=== PATIENT | male | born 1935 | race Caucasian/White ===

== ENCOUNTER 2017-05-16 12:10 | Emergency (ER) | payer OTHER, BC ==
[2017-05-16 12:22] VITALS: BP 172/83; PULSE 65; TEMP 98.3; BMI 36.3
--- NOTE | 2017-05-16 12:24 | PDOC ---
History of Present Illness - General Chief Complaint: Nasal Bleeding Stated Complaint: NOSE BLEED Time Seen by Provider: 05/16/17 12:18 History Source: Patient, Family Exam Limitations: No Limitations - History of Present Illness Initial Comments: 05/16/17 12:19 81 y/o male with nose bleed for 2 hours. Denies being on blood thinners except for a baby Aspirin. No fall or trauma. No headache. called nurse line awnd was told to put ice and pressure on nose. Arrives to ER with no active bleeding. No neck pain, weakness or headache. Feels fine now. Timing/Duration: 1-3 hours Severity: mild Past History - Past Medical History Allergies/Adverse Reactions: Allergies Allergy/AdvReac Type Severity Reaction Status Date / Time IVP DYE Allergy Uncoded 01/13/16 22:31 Home Medications: Ambulatory Orders Aspirin [ASA -] 81 mg PO DAILY 01/13/16 Cholecalciferol (Vitamin D3) [Vitamin D3] 2,000 unit PO DAILY 01/13/16 Diltiazem HCl [Diltiazem 24Hr ER] 180 mg PO DAILY 01/13/16 Finasteride 5 mg PO DAILY 01/13/16 Folic Acid 1 mg PO DAILY 01/13/16 Hydrochlorothiazide [Hctz -] 25 mg PO DAILY 01/13/16 Loperamide HCl [Imodium -] 2 mg PO DAILY 01/13/16 Losartan Potassium 100 mg PO DAILY 01/13/16 Cardiac Disorders: Yes HTN: Yes - Suicide/Smoking/Psychosocial Hx Smoking History: Former smoker Have you smoked in the past 12 months: No Hx Alcohol Use: Yes (OCCAS) Drug/Substance Use Hx: No Substance Use Type: None Review of Systems - Review of Systems Able to Perform ROS?: Yes Is the patient limited Salvadorean proficient: No Constitutional: No: Chills, Fever HEENTM: Yes: Nose Bleeding Respiratory: No: Cough, Shortness of Breath Cardiac (ROS): No: Chest Pain Musculoskeletal: No: Back Pain All Other Systems: Reviewed and Negative *Physical Exam - Physical Exam General Appearance: Yes: Nourished, Appropriately Dressed. No: Apparent Distress HEENT: positive: EOMI, MAHESH, Normal Voice, Symmetrical, Pharynx Normal. negative: Normal ENT Inspection (dried blood from left nostril no septal hematoma or active bleeding noted, no erythema or tubinate swelling), Pharyngeal Erythema, Sinus Tenderness Neck: positive: Trachea midline, Normal Thyroid, Supple. negative: Tender, Rigid, Carotid bruit Respiratory/Chest: positive: Lungs Clear, Normal Breath Sounds. negative: Chest Tender, Respiratory Distress Cardiovascular: positive: Regular Rhythm, Regular Rate, S1, S2. negative: Edema , JVD, Murmur Vascular Pulses: Femoral (R): 4+, Femoral (L): 4+, Carotid (R): 4+, Carotid (L) : 4+, Dorsalis-Pedis (R): 4+, Doralis-Pedis (L): 4+ Gastrointestinal/Abdominal: positive: Normal Bowel Sounds, Flat Lymphatic: negative: Adenopathy, Tenderness, Other Musculoskeletal: positive: Normal Inspection. 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 *DC/Admit/Observation/Transfer Diagnosis at time of Disposition: Epistaxis - Discharge Dispostion Disposition: HOME Condition at time of disposition: Good Admit: No - Referrals - Patient Instructions Printed Discharge Instructions: DI for Nosebleed Additional Instructions: Ice, Tylenol, rest Apply pressure to nose for 20 minutes if restarts If worsen return to ER - Post Discharge Activity
== END 2017-05-16 12:31 | disposition home or self-care (01) ==
LOC: FER 12:10
DX: R04.0 Epistaxis (principal); Z79.82 Long term (current) use of aspirin; Z87.891 Personal history of nicotine dependence; I10 Essential (primary) hypertension
CPT/HCPCS: 99281-25

== ENCOUNTER 2017-06-01 09:33 | Emergency (ER) | payer OTHER, BC ==
[2017-06-01 09:51] VITALS: TEMP 98.9; BMI 37.1
--- NOTE | 2017-06-01 10:25 | PDOC ---
History of Present Illness - General Chief Complaint: Shortness of Breath Stated Complaint: DIFFICULTY BREATHING Time Seen by Provider: 06/01/17 09:40 - History of Present Illness Initial Comments: 06/01/17 11:03 78-year-old male history of hypertension, previous smoker, dementia, BPH presents emergency Department with transient shortness of breath this morning upon waking up at 730am. Patient is poor historian, and most of history is from the patient's . She reports she was on her way to work this morning when he complained of shortness of breath that lasted for about 1 minute. She reports that at the time he looks comfortable and she advised him to sit up from a lying position and the shortness of breath resolved. At this time, the patient is asymptomatic and denies shortness of breath. He's been in his usual state of health. His reports that he had a similar episode last summer and was evaluated at [facility] emergency department with a negative workup. His also reports he was admitted one month ago at [facility] for renal failure at which point his hydrochlorothiazide medication was stopped. She reports he has lower extremity edema chronically and there is no change in his edema today. Patient denies chest pain, abdominal pain, nausea, dizziness, vomiting, rashes, focal weakness or numbness. PMD: Dr. Elpidio Wong Past History - Past Medical History Allergies/Adverse Reactions: Allergies Allergy/AdvReac Type Severity Reaction Status Date / Time cefdinir AdvReac Mild Verified 06/01/17 09:34 IVP DYE Allergy Uncoded 06/01/17 09:34 Home Medications: Ambulatory Orders Aspirin [ASA -] 81 mg PO DAILY 01/13/16 Diltiazem HCl [Diltiazem 24Hr ER] 180 mg PO DAILY 01/13/16 Finasteride 5 mg PO DAILY 01/13/16 Folic Acid 1 mg PO DAILY 01/13/16 Losartan Potassium 100 mg PO DAILY 01/13/16 Quetiapine Fumarate [Seroquel -] 25 mg PO HS 05/16/17 Bifidobacterium Infantis [Align] 10.5 mg PO DAILY 06/01/17 Cyanocobalamin [Vitamin B12 -] 500 mg PO DAILY 06/01/17 Cardiac Disorders: Yes COPD: No Dementia: Yes HTN: Yes Other medical history: DEMENTIA, PROSTATE - Suicide/Smoking/Psychosocial Hx Smoking History: Former smoker Have you smoked in the past 12 months: No If you are a former smoker, when did you quit?: 1994 Information on smoking cessation initiated: No Hx Alcohol Use: No Drug/Substance Use Hx: No Substance Use Type: None Review of Systems - Review of Systems Comments:: 06/01/17 11:06 GENERAL/CONSTITUTIONAL: No fever or chills. No weakness. HEAD, EYES, EARS, NOSE AND THROAT: No change in vision. No ear pain or discharge. No sore throat. GASTROINTESTINAL: No nausea, vomiting, diarrhea or constipation. GENITOURINARY: No dysuria, frequency, or change in urination. CARDIOVASCULAR: No chest pain +shortness of breath. RESPIRATORY: No cough, wheezing, or hemoptysis. MUSCULOSKELETAL: No joint or muscle swelling or pain. No neck or back pain. SKIN: No rash NEUROLOGIC: No headache, vertigo, loss of consciousness, or change in strength/ sensation. ENDOCRINE: No increased thirst. No abnormal weight change. HEMATOLOGIC/LYMPHATIC: No anemia, easy bleeding, or history of blood clots. ALLERGIC/IMMUNOLOGIC: No hives or skin allergy. *Physical Exam - Vital Signs Last Vital Signs Temp Pulse Resp BP Pulse Ox 98.9 F 67 20 159/73 95 06/01/17 09:33 06/01/17 09:33 06/01/17 09:33 06/01/17 09:33 06/01/17 09:33 - Physical Exam Comments: 06/01/17 11:07 GENERAL: Awake, alert, oriented to name only, in no acute distress HEAD: No signs of trauma EYES: PERRLA, EOMI, sclera anicteric, conjunctiva clear ENT: Oropharynx clear without exudates. Moist mucosa NECK: Normal ROM, supple, no lymphadenopathy, JVD, or masses LUNGS: Breath sounds equal, clear to auscultation bilaterally. No wheezes, and no crackles HEART: Regular rate and rhythm, normal S1 and S2, no murmurs, rubs or gallops ABDOMEN: Obese, soft, nontender, normoactive bowel sounds. No guarding, no rebound. No masses EXTREMITIES: Normal range of motion. No clubbing or cyanosis. No cords, erythema, or tenderness. 1+ pitting edema, symmetric, to mid calves NEUROLOGICAL: Normal speech, cranial nerves grossly intact, normal strength and sensation throughout. Normal gait. SKIN: Warm, Dry, normal turgor, no rashes or lesions noted. Heart Score/ECG Review #1 06/01/17 10:26 Twelve-lead EKG was performed and reviewed by me. Sinus bradycardia, rate 57. Normal axis. No ST elevations or T-wave inversions. ED Treatment Course - LABORATORY CBC & Chemistry Diagram: 06/01/17 10:05 06/01/17 10:05 - RADIOLOGY Radiology Studies Ordered: Category Date Time Status CHEST X-RAY PORTABLE* [RAD] Stat Radiology 06/01/17 09:36 Taken Medical Decision Making - Medical Decision Making 06/01/17 11:09 81-year-old male with a history of dementia, hypertension, smoking, BPH presents with transient 1 minute episode of shortness of breath home this morning. Vitals here are unremarkable. Exam is unremarkable other than 1+ lower extremity edema which the patient's states is unchanged. Patient asymptomatic in the ED which is reassuring but given recent admission for renal failure and some risk factors, will obtain labs and x-ray and reassess. 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 Pt continues to be HDS, continues to deny SOB or any sxs in the ED. Case discussed with the patient 's primary physician Dr. Wong. Previous creatinine was elevated to 3.1 and 2.5 and thus today creatinine is improved since then. Previous hemoglobins range between 10.9 and 11 and thus hemoglobin of 10.4 today is not far off the baseline. Discussed the remainder of labs and normal x-ray and that the patient remains asymptomatic in the emergency department. Plan is to repeat troponin and if negative will discharge patient to follow-up with Dr. Wong this week. Dr. Wong asked me to have his call the office and speak with Tonya for the appointment. 06/01/17 14:35 Second troponin is negative. Patient continues to be asymptomatic in the emergency department with stable vitals. Patient feels well and requests discharge home. I discussed the physical exam findings, ancillary test results and final diagnoses with the patient. I answered all of the patient's questions. The patient was satisfied with the care received and felt comfortable with the discharge plan and treatment plan. The patient will call their primary care physician within 24 hours to arrange follow-up and will return to the Emergency Department with any new, persistent or worsening symptoms. *DC/Admit/Observation/Transfer Diagnosis at time of Disposition: Shortness of breath - Discharge Dispostion Disposition: HOME Condition at time of disposition: Stable Admit: No - Referrals - Patient Instructions Printed Discharge Instructions: DI for Shortness of Breath Additional Instructions: As discussed, follow-up with Dr. Wong within 1-2 days. He is expecting you. Call his office and speak to Tonya to make the appointment. Take all of your medications as prescribed. Return to the emergency department if you have any new, worsening, or concerning symptoms. - Post Discharge Activity - Attestations Physician Attestion: 06/01/17 14:40 I, Dr. Norah Dawkins MD, attest that this document has been prepared under my direction and personally reviewed by me in its entirety. I further attest, that it accurately reflects all work, treatment, procedures and medical decision -making performed by me.
[2017-06-01 10:30] LABS: BASO % 0.8 % (0-2.0); HEMATOCRIT 31.1 % (35.4-49); HEMOGLOBIN 10.4 GM/dl (11.7-16.9); LYMPH % 9.7 % (8-40); MCH 32.5 pg (25.7-33.7); MCHC 33.6 g/dl (32.0-35.9); MEAN CELL VOLUME 96.9 fl (80-96); MEAN PLT VOLUME 7.3 fl (7.5-11.1); MONO % 7.1 % (3.8-10.2); NEUT % 78.4 % (42.8-82.8); PLATELET COUNT 234 K/MM3 (134-434); RBC 3.21 M/mm3 (4.00-5.60); RDW 13.1 % (11.9-15.9); WHITE BLOOD COUNT 6.4 K/mm3 (4.0-10.8)
[2017-06-01 10:32] LABS: ALBUMIN 3.4 g/dl (3.5-5.0); ALK PHOS 81 U/L (32-92); ANION GAP 3 (8-16); BLOOD UREA NITROGEN 25 mg/dl (7-18); CALCIUM 8.2 mg/dl (8.4-10.2); CHLORIDE 106 mmol/L (98-107); CO2 26 mmol/L (22-28); CREATININE 1.7 mg/dl (0.6-1.3); GLUCOSE,RANDOM 118 mg/dl (74-106); MAGNESIUM 1.6 mg/dL (1.8-2.4); POTASSIUM 3.6 mmol/L (3.5-5.1); SGOT/AST 22 U/L (10-42); SGPT/ALT 8 U/L (10-40); SODIUM 135 mmol/L (136-145); TOT PROT 6.3 g/dl (6.4-8.3)
[2017-06-01 10:53] LABS: BILIRUBIN,TOTAL 0.6 mg/dl (0.2-1.0)
[2017-06-01 12:21] VITALS: BP 162/68; PULSE 55
--- NOTE | 2017-06-09 01:03 | EKG ---
Test Reason : Blood Pressure : / mmHG Vent. Rate : 057 BPM Atrial Rate : 057 BPM P-R Int : 176 ms QRS Dur : 094 ms QT Int : 466 ms P-R-T Axes : 050 008 054 degrees QTc Int : 453 ms SINUS BRADYCARDIA LOW VOLTAGE QRS SEPTAL INFARCT , AGE UNDETERMINED POSSIBLE INFERIOR INFARCT , AGE UNDETERMINED ABNORMAL ECG NO PREVIOUS ECGS AVAILABLE Confirmed by BRO BAILEY MD ([id number]) on 06/09/2017 1:03:31 AM Referred By: MD ISLAS Confirmed By:BRO BAILEY MD
== END 2017-06-01 14:54 | disposition home or self-care (01) ==
LOC: FER 09:33
DX: R06.02 Shortness of breath (principal); F03.90 Unspecified dementia, unspecified severity, without behavioral disturbance, psychotic disturbance, mood disturbance, and anxiety; I10 Essential (primary) hypertension; F17.210 Nicotine dependence, cigarettes, uncomplicated; N40.0 Benign prostatic hyperplasia without lower urinary tract symptoms
CPT/HCPCS: 36415; 71045-TC-FY; 80053; 83735; 83880; 84484; 85025; 85730; 93005; 93010; 99283-25

== ENCOUNTER 2018-03-23 21:11 | Emergency (ER) | payer OTHER, BC ==
[2018-03-23 21:33] VITALS: BP 138/68; PULSE 76; TEMP 97.3; BMI 37.1
--- NOTE | 2018-03-23 21:49 | PDOC ---
History of Present Illness - General Chief Complaint: Dysphagia Stated Complaint: DIFFICULTY SWALLOWING Time Seen by Provider: 03/23/18 21:24 History Source: Patient, Family Exam Limitations: No Limitations - History of Present Illness Initial Comments: 03/23/18 21:53 The patient is a 82 year old male presenting with his , with a significant past medical history of hypertension, previous smoker, dementia, BPH, who presents to the ED complaining of hiccups and trouble swallowing onset today at 730pm. Patient's reports that the patient was eating dinner when his symptoms started, after eating too fast. On presentation the patient is able to drink water and eat ice chips, but refusing per . The patient is also able to speak full sentences. The patient does report some slight chest/throat discomfort which started after his hiccups. The patient was in the ED before () with similar symptoms and discharged after evaluation without complications. Allergies: Cefdinir, IV Dye Past surgical history: None reported Social History: No alcohol, tobacco or drug use reported ROS Constitutional: no fevers or chills. HEENT: (+) Hiccups, trouble swallowing. No headache or dizziness. No congestion. CVS: (+) Chest discomfort. no syncope. Resp: no sob. No cough. Gastrointestinal: no abdominal pain, nausea or vomiting. MUSCULOSKELETAL: No joint pain and swelling. No neck or back pain. SKIN: no redness or skin changes, no discharge, no rash. No wounds. Hematologic: no easy bruising/bleeding. NEUROLOGIC: No headache, dizziness, LOC or altered mental status. Allergic/Immunologic: no allergies All other systems reviewed and negative, or as documented in HPI. PE General: Well appearing, awake and alert, NAD. +hiccuping HEENT: NCAT, PERRL, EOMI, clear conjunctiva, anicteric, moist mucus membranes, clear oropharynx, no oral lesions.. airway intact, normal phonation. Neck: neck supple, FROM Resp: CTAB, normal and even respirations, no respiratory distress CVS: RRR, no murmurs, 2+ peripheral pulses throughout Abdomen: soft, obese, nontender. Back: nontender, normal inspection and ROM MSK: no edema, SCHNEIDER x4, ROM intact. No clubbing or cyanosis. normal bulk and tone. Neuro: (+) Pleasantly Demented. Alert Skin: warm and well perfused, cap refill <2 sec, normal color Past History - Past Medical History Allergies/Adverse Reactions: Allergies Allergy/AdvReac Type Severity Reaction Status Date / Time cefdinir AdvReac Mild Verified 03/23/18 21:36 IVP DYE Allergy Uncoded 03/23/18 21:37 Home Medications: Ambulatory Orders Aspirin [ASA -] 81 mg PO DAILY 01/13/16 Diltiazem HCl [Diltiazem 24Hr ER] 180 mg PO DAILY 01/13/16 Finasteride 5 mg PO DAILY 01/13/16 Folic Acid 1 mg PO DAILY 01/13/16 Losartan Potassium 100 mg PO DAILY 01/13/16 Quetiapine Fumarate [Seroquel -] 25 mg PO HS 05/16/17 Bifidobacterium Infantis [Align] 10.5 mg PO DAILY 06/01/17 Cyanocobalamin [Vitamin B12 -] 500 mg PO DAILY 06/01/17 Cardiac Disorders: Yes COPD: No Dementia: Yes GI Disorders: Yes (COLITIS) HTN: Yes Other medical history: PROSTATE - Suicide/Smoking/Psychosocial Hx Smoking History: Former smoker Have you smoked in the past 12 months: No If you are a former smoker, when did you quit?: 1995 Information on smoking cessation initiated: No Hx Alcohol Use: No Drug/Substance Use Hx: No Substance Use Type: None *Physical Exam - Vital Signs Last Vital Signs Temp Pulse Resp BP Pulse Ox 97.3 F L 76 18 138/68 100 03/23/18 21:14 03/23/18 21:14 03/23/18 21:14 03/23/18 21:14 03/23/18 21:14 Moderate Sedation - Procedure Monitoring Vital Signs: Procedure Monitoring Vital Signs Temperature 97.3 F L 03/23/18 21:14 Pulse Rate 76 03/23/18 21:14 Respiratory Rate 18 03/23/18 21:14 Blood Pressure 138/68 03/23/18 21:14 O2 Sat by Pulse Oximetry (%) 100 03/23/18 21:14 Medical Decision Making - Medical Decision Making 03/23/18 21:56 hpi as documented VS wnl. airway intact, breathing clear. no acute distress tolerating ice chips and drinking vigorously. hiccups ceased eager for discharge. instructions on preventing and managing hiccups discussed with patient and , who are agreeable and verbalize understanding *DC/Admit/Observation/Transfer Diagnosis at time of Disposition: Hiccups - Discharge Dispostion Disposition: HOME Condition at time of disposition: Stable Decision to Admit order: No - Referrals Referrals: Elpidio Wong [Primary Care Provider] - - Patient Instructions Printed Discharge Instructions: DI for Hiccups Additional Instructions: you had the hiccups that were resolved with drinking water, which is highly encouraged when you get hiccups. you should eat slowly, chew adequately and drink fluids when this happens you can apply pressure points and hold your breath while drinking. if hiccups are recurrent >48 hours, return for evaluation. otherwise this will self resolve follow up with your primary doctor for the hiccups. - Post Discharge Activity - Attestations Physician Attestion: 03/23/18 21:53 I, Michelle Palmer MD, attest that this document has been prepared under my direction and personally reviewed by me in its entirety. I further attest, that it accurately reflects all work, treatment, procedures and medical decision -making performed by me.
== END 2018-03-23 21:53 | disposition home or self-care (01) ==
LOC: FER 21:11
DX: R06.6 Hiccough (principal); F03.90 Unspecified dementia, unspecified severity, without behavioral disturbance, psychotic disturbance, mood disturbance, and anxiety; N40.0 Benign prostatic hyperplasia without lower urinary tract symptoms; I10 Essential (primary) hypertension
CPT/HCPCS: 99282-25

== ENCOUNTER 2018-10-30 20:31 | Emergency (ER) | payer OTHER, BC | END 2018-10-30 23:56 | disposition home or self-care (01) | LOC: FER 20:31 ==